=== PATIENT | male | born 1940 | race Caucasian/White ===

== ENCOUNTER 2018-10-25 14:10 | Inpatient (IN) ==
[2018-10-25] MEDS ORDERED: ALBUT/IPRATROP 3MG/0.5MG NEB 3 ML VIAL INH STA (14:48)
[2018-10-25] MEDS ORDERED: methylPREDNISolone 125 MG/2 ML VIAL IV STA (14:48)
[2018-10-25 15:16] LABS: Basophils # (auto) 0.01 K/uL (0-0.2); Basophils % (auto) 0.1 %; Eosinophils # (auto) 0.16 K/uL (0-0.5); Eosinophils % (auto) 1.2 %; Hematocrit (blood only) 42.9 % (42-52); Hemoglobin 13.8 g/dL (14.0-18.0); Immature Granulocytes # (auto) 0.04 K/uL (0.00-0.02); Immature Granulocytes % (auto) 0.3 %; Lymphocytes # (auto) 0.57 K/uL (1.2-3.4); Lymphocytes % (auto) 4.1 %; Mean Corpuscular Hgb Conc 32.2 g/dL (32-36); Mean Corpuscular Volume 90.7 fL (80-100); Mean Platelet Volume 10.2 fL (7.4-10.4); Monocytes # (auto) 0.97 K/uL (0.11-0.59); Neutrophils # (auto) 12.07 K/uL (1.4-6.5); Neutrophils % (auto) 87.3 %; Platelet Count 191 K/uL (130-400); RDW Coefficient of Variation 15.8 % (11.5-14.5); RDW Standard Deviation 52.5 fL (36.4-46.3); Red Blood Count 4.73 M/uL (4.7-6.1); White Blood Count 13.82 K/uL (4.8-10.8)
--- NOTE | 2018-10-25 15:27 | XRay Report ---
XR chest 1V portable CLINICAL HISTORY: 77 years-old Male presenting with Dyspnea. TECHNIQUE: Portable upright AP view of the chest was obtained. COMPARISON: Chest CT from 10/21/2018. FINDINGS: Atherosclerosis of the aortic arch. Cardiac silhouette top normal in size. Extensive reticular opacit ies with a mid to basilar predominance increased from prior. Background heterogeneous lung markings. No large pleural effusion or pneumothorax. Osseous structures normal. Upper abdomen normal. IMPRESSION: 1. Increased bilateral mid to basilar predominant infiltrates superimposed on emphysema. This is con cerning for multifocal pneumonia versus aspiration. Electronically signed by: Jose Henley M.D. 10/25/2018 3:26 PM
--- NOTE | 2018-10-25 16:16 | Ultrasound Report ---
US venous doppler LE BI CLINICAL HISTORY: Bilateral leg pain COMPARISON STUDY: No previous studies for comparison. FINDINGS: Real-time and color flow Doppler imaging were performed. Flow was seen within the femoral, popliteal and calf veins with no intraluminal thrombus demonstrated. The saphenous vein is patent. IMPRESSION: No evidence of lower extremity DVT. Electronically signed by: Brandon Fregoso M.D. 10/25/2018 4:14 PM
[2018-10-25 17:48] LABS: INR 1.1 (0.9-1.1); Partial Thromboplastin Ratio 1.2; Partial Thromboplastin Time 31.2 Seconds (21.0-31.0); Prothrombin Time 10.9 Seconds (9.0-12.0)
[2018-10-25 17:58] LABS: Albumin Level 3.2 gm/dl (3.4-5.0); BUN Creatinine Ratio 12.3 (10-20); Calcium 8.8 mg/dl (8.5-10.1); Creatinine Clr Calc Pharmacy 65.5 ml/min; Est GFR (African American) 87.4; Est GFR (Non-African American) 75.4; Potassium 4.3 mmol/L (3.5-5.1)
[2018-10-25 18:01] LABS: Albumin Globulin Ratio 0.7 (0.9-2); Bilirubin,Total 0.7 mg/dl (0.2-1); Globulin 4.6 gm/dl (2.5-4.0); Total Protein 7.8 gm/dl (6.4-8.2)
--- NOTE | 2018-10-25 19:01 | History & Physical Report ---
Date of Service October 25, 2018 Assessment & Plan (1) Shortness of breath: Patient with recent multilobar PNA and influenza requiring two week hospitalization in [place]. Progressive weakness and SOB over the last 2 weeks. Patient denies fevers, chills, malaise. He does have leukocytosis with WBC at 13.82 - uncertain what his WBC count was on discharge (records have been requested). Tachycardic at 102bpm. Uncertain if this is recurrence of PNA/ failure of treatment, deconditioning, aspiration, etc. Patient presently with no respiratory distress, adequate oxygenation on 2L NC. -Admit to medical floor with telemetry -Continuous pulse oximetry -Check BNP, procalcitonin -Check 2D echocardiogram - ?cardiomyopathy after recent influenza infection -Speech/Swallow evaluation for possible aspiration -Incentive spirometry q2h while awake -DuoNebs q 4 hours -Albuterol q 2 hours as needed -PT/OT evaluation (2) Multifocal pneumonia: History of the same, s/p hospitalization at [place]. Presently afebrile. Tachycardic, leukocytosis -Blood cultures pendinig -Check sputum culture -Obtain records from hospitalization -Check procalcitonin -Vancomycin and Zosyn (3) COPD (chronic obstructive pulmonary disease): No wheezing at present. Patient administered SoluMedrol in ER -DuoNebs and Albuterol PRN (4) CAD (coronary artery disease): Patient with CAD s/p stent placement x 2 in 2012 -Continue ASA, Plavix and Crestor -Echo ordered (5) GERD (gastroesophageal reflux disease): Chronic, stable -Continue Protonix (6) Hypothyroid: Chronic -Continue Synthroid History of Present Illness Chief Complaint: SOB Primary Care Provider: Roderick Mcghee Mr. Arias is a 77yo male with history of COPD, recurrent PNA (yearly over the past 3 years), CAD s/p GA with stent x 2 presenting with SOB. Patient was admitted to [facility] 09/29/18 - 10/08/18 with acute respiratory failure, pneumonia and influenza. He reports he was treated with antibiotics, Tamiflu and nebs. He does not recall which antibiotics were used. He was not in the MICU and not intubated. He was discharged with a steroid taper and home oxygen was initiated. He now wears 2-3 liters at home with rest and 6 liters at home with activity. He reports feeling fairly well for 3-4 days after returning home after which he became progressively weak and short of breath. Patient reports becoming dyspneic with minimal ambulation in his home, appx 20-30 feet. Prior to his PNA he was fairly independent. He denies fevers/chills/sweats/ malaise. Denies chest pain/palpitations. Denies abdominal pain/nausea/ vomiting. He did have some diarrhea which resolved yesterday. He has a dry cough. Patient was seen in followup on 10/13/18. At that time he was feeling better. A CT chest was ordered to followup on a possible "mass" noted on [facility] imaging ER Course: Solumedrol 125mg, DuoNeb Allergies Allergy/AdvReac Type Severity Reaction Status Date / Time cephalexin Allergy Unknown ITCHING Verified 10/25/18 15:26 Iodinated Contrast- Oral and Allergy Unknown Hypotension Verified 10/25/18 15:26 IV Dye Home Medications Home Medications Medication Instructions Recorded Confirmed Type albuterol sulfate 3 ml INHALATION Q6H PRN 10/25/18 10/25/18 History aspirin 81 mg PO DAILY 10/25/18 10/25/18 History clopidogrel 75 mg PO Q2D 10/25/18 10/25/18 History docusate sodium [Stool Softener] 100 mg PO BID PRN 10/25/18 10/25/18 History levothyroxine 50 mcg PO QAM 10/25/18 10/25/18 History pantoprazole 40 mg PO QAM 10/25/18 10/25/18 History rosuvastatin 20 mg PO DAILY 10/25/18 10/25/18 History trazodone 300 mg PO HS 10/25/18 10/25/18 History Past Med/Surg History Medical History CAD (coronary artery disease) COPD (chronic obstructive pulmonary disease) Emphysema Epistaxis GERD (gastroesophageal reflux disease) Hyperlipidemia Hypothyroid Insomnia Lung mass Currently being worked up by Pulmonary No significant family history No significant past surgical history Surgical History H/O heart artery stent S/P hemorrhoidectomy S/P hernia repair Family History Other Cancer Social History Feels Safe at Home: Yes Smoking Status: Former smoker Hx Alcohol Use: No Hx Substance Use: No Review of Systems All systems reviewed & are unremarkable except as noted in HPI & below Physical Exam 2 Vital Signs (Past 24 Hours): Last Vital Signs Temp 37.4 C 10/25/18 14:20 Pulse 104 H 10/25/18 18:30 Resp 20 10/25/18 18:30 BP 147/87 H 10/25/18 18:30 Pulse Ox 93 10/25/18 18:30 Physical Exam: General: patient resting comfortably, NAD, AA&O x 4, chronically ill in appearance Skin: warm, dry, intact, no rashes or lesions HEENT: NC/AT, PERRL, EOMI, anicteric sclera, conjunctiva without injection, external ear normal to inspection and nontender, nares patent, moist mucus membranes, poor dentition, no oropharyngeal lesions, neck supple, trachea midline, no LAD, no thyromegaly, no JVD Heart: +S1/S2, regular, tachycardic, no m/r/g Lungs: equal air entry bilaterally, + coarse breath sounds/crackles in right base and left mid-lung field, no wheezing Abd: +BS, soft, NT/ND, no masses/organomegaly/ascites Ext: warm, 2+ pulses in UE/LE bilaterally, slight digital clubbing, no edema Neuro: nonfocal, patient AA&O x 4, speech intact, no facial droop, moving all extremities on command with equal strength 5/5 Results & Data Laboratory Results Lab Results 10/25/18 10/25/18 10/25/18 Range/Units 15:00 15:00 15:00 WBC 13.82 H (4.8-10.8) K/uL RBC 4.73 (4.7-6.1) M/uL Hgb 13.8 L (14.0-18.0) g/dL Hct 42.9 (42-52) % MCV 90.7 (80-100) fL MCH 29.2 (25-34) pg MCHC 32.2 (32-36) g/dL RDW Std Deviation 52.5 H (36.4-46.3) fL RDW Coeff of Yoselin 15.8 H (11.5-14.5) % Plt Count 191 (130-400) K/uL MPV 10.2 (7.4-10.4) fL Immature Gran % (Auto) 0.3 % Neut % (Auto) 87.3 % Lymph % (Auto) 4.1 % [place] % (Auto) 7.0 % Eos % (Auto) 1.2 % Baso % (Auto) 0.1 % Immature Gran # (Auto) 0.04 H (0.00-0.02) K/uL Neut # (Auto) 12.07 H (1.4-6.5) K/uL Lymph # (Auto) 0.57 L (1.2-3.4) K/uL [place] # (Auto) 0.97 H (0.11-0.59) K/uL Eos # (Auto) 0.16 (0-0.5) K/uL Baso # (Auto) 0.01 (0-0.2) K/uL PT Cancelled INR Cancelled APTT Cancelled PTT Ratio Cancelled POC D-Dimer (0-450) ng/mlFEU Sodium Cancelled Potassium Cancelled Chloride Cancelled Carbon Dioxide Cancelled Anion Gap Cancelled BUN Cancelled Creatinine Cancelled Est Cr Clr Drug Dosing Cancelled Est GFR ( Amer) Cancelled Est GFR (Non-Af Amer) Cancelled BUN/Creatinine Ratio Cancelled Glucose Cancelled Calcium Cancelled Total Bilirubin Cancelled AST Cancelled ALT Cancelled Alkaline Phosphatase Cancelled POC Troponin I (0-0.045) ng/ml Total Protein Cancelled Albumin Cancelled Globulin Cancelled Albumin/Globulin Ratio Cancelled 10/25/18 10/25/18 10/25/18 Range/Units 15:08 16:40 16:40 WBC (4.8-10.8) K/uL RBC (4.7-6.1) M/uL Hgb (14.0-18.0) g/dL Hct (42-52) % MCV (80-100) fL MCH (25-34) pg MCHC (32-36) g/dL RDW Std Deviation (36.4-46.3) fL RDW Coeff of [place]oselin (11.5-14.5) % Plt Count (130-400) K/uL MPV (7.4-10.4) fL Immature Gran % (Auto) % Neut % (Auto) % Lymph % (Auto) % [place] % (Auto) % Eos % (Auto) % Baso % (Auto) % Immature Gran # (Auto) (0.00-0.02) K/uL Neut # (Auto) (1.4-6.5) K/uL Lymph # (Auto) (1.2-3.4) K/uL [place] # (Auto) (0.11-0.59) K/uL Eos # (Auto) (0-0.5) K/uL Baso # (Auto) (0-0.2) K/uL PT 10.9 INR 1.1 APTT 31.2 H PTT Ratio 1.2 POC D-Dimer > 450 H* (0-450) ng/mlFEU Sodium 138 Potassium 4.3 Chloride 103 Carbon Dioxide 30 Anion Gap 5.0 BUN 12 Creatinine 0.96 Est Cr Clr Drug Dosing 65.5 Est GFR ( Amer) 87.4 Est GFR (Non-Af Amer) 75.4 BUN/Creatinine Ratio 12.3 Glucose 102 H Calcium 8.8 Total Bilirubin 0.7 AST 15 ALT 29 Alkaline Phosphatase 74 POC Troponin I < 0.03 (0-0.045) ng/ml Total Protein 7.8 Albumin 3.2 L Globulin 4.6 H Albumin/Globulin Ratio 0.7 L Diagnostic Findings XR chest 1V portable CLINICAL HISTORY: 77 years-old Male presenting with Dyspnea. TECHNIQUE: Portable upright AP view of the chest was obtained. COMPARISON: Chest CT from 10/21/2018. FINDINGS: Atherosclerosis of the aortic arch. Cardiac silhouette top normal in size. Extensive reticular opacities with a mid to basilar predominance increased from prior. Background heterogeneous lung markings. No large pleural effusion or pneumothorax. Osseous structures normal. Upper abdomen normal. IMPRESSION: 1. Increased bilateral mid to basilar predominant infiltrates superimposed on emphysema. This is concerning for multifocal pneumonia versus aspiration. Electronically signed by: Jose Henley M.D. 10/25/2018 3:26 PM Dictated: 10/25/18 1525 Transcribed: 10/25/18 1525 US venous doppler LE BI CLINICAL HISTORY: Bilateral leg pain COMPARISON STUDY: No previous studies for comparison. FINDINGS: Real-time and color flow Doppler imaging were performed. Flow was seen within the femoral, popliteal and calf veins with no intraluminal thrombus demonstrated. The saphenous vein is patent. IMPRESSION: No evidence of lower extremity DVT. Electronically signed by: Brandon Fregoso M.D. 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 transplanted heart: [place] heart Associated angina: without angina Qualified Code(s): I25.10 - Atherosclerotic heart disease of [place] coronary artery without angina pectoris (3) GERD (gastroesophageal reflux disease) Esophagitis presence: esophagitis presence not specified Qualified Code(s): K21.9 - Gastro-esophageal reflux disease without esophagitis (4) Hypothyroid Hypothyroidism type: unspecified Qualified Code(s): E03.9 - Hypothyroidism, unspecified
[2018-10-25] MEDS ORDERED: VANCOMYCIN CONSULT ACTIVE PRN (21:03)
[2018-10-25] MEDS ORDERED: DOCUSATE SODIUM 100 MG CAP PO PRN (21:03)
[2018-10-25] MEDS ORDERED: PIPERACILL/TAZOBAC CONSULT ACTIVE PRN (21:03)
[2018-10-25] MEDS ORDERED: ALBUTEROL 0.083% NEBU SOLN 3 ML VIAL INH PRN (21:03)
[2018-10-25] MEDS ORDERED: SODIUM CHLORIDE 0.65% NA SOLN 45 ML (OCEAN) PRN (21:03)
[2018-10-25] MEDS ORDERED: ACETAMINOPHEN 325 MG TAB PO PRN (21:03)
[2018-10-25] MEDS ORDERED: VANCOMYCIN HCL 2,000 MG in SODIUM CHLORIDE 0.9% 500 ML IV ONE (21:15)
[2018-10-25] MEDS ORDERED: PIPERACILLIN/TAZOBACTAM 4.5 GM in DEXTROSE 5% 100 ML IV ONE (21:15)
--- NOTE | 2018-10-25 21:32 | Emergency Department Note ---
Entered by Heidy Austin acting as a scribe for Tommy Banks MD History of Present Illness General Chief complaint: Cardiac Assessment Stated complaint: HEART FLUTTERING,GENERALIZED PAIN Source: patient Limitations: no limitations History of Present Illness Provider complaint: cardiac assessment Onset (ago): hour(s) Location: chest Associated symptoms: + denies other symptoms (swelling in legs), + chest pain, + cough, + shortness of breath and + weakness; no fever/chills Treatments prior to arrival: other (nebulizer) The patient is a 77 year old male who presents to the Emergency Room for a cardiac assessment. The patient states that his home health nurse was at his house prior to arrival and insisted that the patient come to the ED for evaluation. The patient states that his heart was beating quickly and that his oxygen was dropping. The patient states that he is usually on 2L of oxygen at home and states that he is suppose to increase it to 6L when he is moving around , which he did not. He also states that he used a nebulizer prior to the nurses arrival. The patient states that he has weakness, shortness of breath, and cough. The patient denies any fevers or swelling of his legs. The patient also states that he has intermittent chest pain that has been going on for years. The patient states that he took his nebulizer approximately 15 minutes before the home health nurse arrived. The patient states that he was diagnosed with pneumonia 2 weeks prior to arrival. The patient states that he has an appointment with a lung specialist in 2 days. The patient states that he has a history of COPD and blood clots. Home Medications Home Medications Medication Instructions Recorded Confirmed Type albuterol sulfate 3 ml INHALATION Q6H PRN 10/25/18 10/25/18 History aspirin 81 mg PO DAILY 10/25/18 10/25/18 History clopidogrel 75 mg PO Q2D 10/25/18 10/25/18 History docusate sodium [Stool Softener] 100 mg PO BID PRN 10/25/18 10/25/18 History levothyroxine 50 mcg PO QAM 10/25/18 10/25/18 History pantoprazole 40 mg PO QAM 10/25/18 10/25/18 History rosuvastatin 20 mg PO DAILY 10/25/18 10/25/18 History trazodone 300 mg PO HS 10/25/18 10/25/18 History Allergies Allergy/AdvReac Type Severity Reaction Status Date / Time cephalexin Allergy Unknown ITCHING Verified 10/25/18 15:26 Iodinated Contrast- Oral and Allergy Unknown Hypotension Verified 10/25/18 15:26 IV Dye Past Med/Surg History Medical History CAD (coronary artery disease) COPD (chronic obstructive pulmonary disease) Emphysema Epistaxis GERD (gastroesophageal reflux disease) Hyperlipidemia Hypothyroid Insomnia Lung mass Currently being worked up by Pulmonary No significant family history No significant past surgical history Surgical History H/O heart artery stent S/P hemorrhoidectomy S/P hernia repair Family History Other Cancer Social History Current Living Situation: Alone Other Information That Helps Us Care for You: No Feels Safe at Home: Yes Smoking Status: Former smoker Tobacco Type: cigarettes Hx Alcohol Use: Yes Hx Substance Use: No Beliefs That Will Affect Care: None Preferred Language: [place] Citizen Communication Ability: Effective Corn Breeder Required: Yes Review of Systems See HPI for pertinent positives & negatives. and A total of 10 systems reviewed and were otherwise negative Physical Exam Vital Signs Vital Signs - 24 hr 10/25/18 14:20 10/25/18 14:35 10/25/18 15:27 Temperature 37.4 C Temperature Source Oral Sepsis Recent Fever Within 48 Hours No Sepsis New/Unexplained Change in Mental Status No Sepsis Action Taken by Nursing No Action Required Pulse Rate 107 H Pulse Rate [Apical] Pulse Rhythm [Apical] Respiratory Rate 20 Respiratory Effort / Characteristics Non-Labored Spontaneous Respiratory Depth Normal Respiratory Pattern Regular Blood Pressure 135/87 Blood Pressure [Left Arm] Blood Pressure Mean 103 Blood Pressure Mean [Left Arm] Pulse Oximetry 95 98 98 Oxygen Delivery Method Nasal Cannula Nasal Cannula Room Air Oxygen Flow Rate 3 2 10/25/18 16:30 10/25/18 18:30 10/25/18 19:58 Temperature Temperature Source Sepsis Recent Fever Within 48 Hours Sepsis New/Unexplained Change in Mental Status Sepsis Action Taken by Nursing Pulse Rate 107 H Pulse Rate [Apical] 102 H 104 H Pulse Rhythm [Apical] Respiratory Rate 20 20 24 Respiratory Effort / Characteristics Respiratory Depth Respiratory Pattern Blood Pressure 118/71 Blood Pressure [Left Arm] 128/64 147/87 H Blood Pressure Mean Blood Pressure Mean [Left Arm] 85 107 Pulse Oximetry 94 93 93 Oxygen Delivery Method Room Air Room Air Nasal Cannula Oxygen Flow Rate 3 10/25/18 21:04 Temperature 36.8 C Temperature Source Oral Sepsis Recent Fever Within 48 Hours Sepsis New/Unexplained Change in Mental Status Sepsis Action Taken by Nursing Pulse Rate Pulse Rate [Apical] 109 H Pulse Rhythm [Apical] Regular Respiratory Rate 22 Respiratory Effort / Characteristics SOB on Exertion Respiratory Depth Normal Respiratory Pattern Tachypnea Blood Pressure Blood Pressure [Left Arm] 127/84 Blood Pressure Mean Blood Pressure Mean [Left Arm] 98 Pulse Oximetry 92 Oxygen Delivery Method Nasal Cannula Oxygen Flow Rate 3 Constitutional: Vital signs reviewed. Eyes: Pupils are equal round reactive to light. Conjunctiva are noninjected. ENT: Pharynx is clear without erythema or exudate. Mucous membranes are moist. Neck supple without meningeal signs. Respiratory: Clear to auscultation bilaterally. Breath sounds are equal bilaterally. Cardiovascular: Tachycardic. No rubs or gallops. GI: Soft, nondistended and nontender. Bowel sounds are present. Musculoskeletal: No peripheral edema. Right calf tenderness. Integumentary: No cyanosis. Neurological: The patient is awake and alert. No focal deficits. Psychiatric: Normal affect. Course 1437: Past medical records reviewed. The patient was evaluated in room A4B, and a complete history and physical examination were performed. 1631: I checked on the patient and discussed his test results with him. The patient stated that he would like to go home but I advised him that would not be a good idea because he was treated for pneumonia but still has it. 1719: I checked on the patient and he states that his chest pain is better after the Nitroglycerin. [facility]: I discussed the patient's case with Dr. Chris Gregory who will evaluate the patient for further hospitalization. Dr. Perez stated that she preferred to wait for the medical records from [place] before giving the patient any antibiotics. Consultations Consultation #1: Dr. Chris Gregory Time: 17:31 Administered Medications Discontinued Medications Albuterol (Duoneb) 3 ml INH NOW STA Stop: 10/25/18 14:49 Last Admin: 10/25/18 15:26 Dose: 3 ml Methylprednisolone (Solumedrol) 125 mg IV NOW STA Stop: 10/25/18 14:49 Last Admin: 10/25/18 15: Dose: 125 mg Medical Decision Making Differential Diagnosis Differential Diagnosis: COPD exacerbation, unstable angina, VT, PE. Medical Records Attestation: I reviewed the patient's medical records. Home Medications Current Medication List: was personally reviewed by me Laboratory Data Attestation: I reviewed the patient's lab results. Result diagrams: 10/25/18 15:00 10/25/18 16:40 Lab Results 10/25/18 10/25/18 10/25/18 Range/Units 15:00 15:00 15:00 WBC 13.82 H (4.8-10.8) K/uL RBC 4.73 (4.7-6.1) M/uL Hgb 13.8 L (14.0-18.0) g/dL Hct 42.9 (42-52) % MCV 90.7 (80-100) fL MCH 29.2 (25-34) pg MCHC 32.2 (32-36) g/dL RDW Std Deviation 52.5 H (36.4-46.3) fL RDW Coeff of Yoselin 15.8 H (11.5-14.5) % Plt Count 191 (130-400) K/uL MPV 10.2 (7.4-10.4) fL Immature Gran % (Auto) 0.3 % Neut % (Auto) 87.3 % Lymph % (Auto) 4.1 % [place] % (Auto) 7.0 % Eos % (Auto) 1.2 % Baso % (Auto) 0.1 % Immature Gran # (Auto) 0.04 H (0.00-0.02) K/uL Neut # (Auto) 12.07 H (1.4-6.5) K/uL Lymph # (Auto) 0.57 L (1.2-3.4) K/uL [place] # (Auto) 0.97 H (0.11-0.59) K/uL Eos # (Auto) 0.16 (0-0.5) K/uL Baso # (Auto) 0.01 (0-0.2) K/uL PT Cancelled INR Cancelled APTT Cancelled PTT Ratio Cancelled POC D-Dimer (0-450) ng/mlFEU Sodium Cancelled Potassium Cancelled Chloride Cancelled Carbon Dioxide Cancelled Anion Gap Cancelled BUN Cancelled Creatinine Cancelled Est Cr Clr Drug Dosing Cancelled Est GFR ( Amer) Cancelled Est GFR (Non-Af Amer) Cancelled BUN/Creatinine Ratio Cancelled Glucose Cancelled Calcium Cancelled Total Bilirubin Cancelled AST Cancelled ALT Cancelled Alkaline Phosphatase Cancelled POC Troponin I (0-0.045) ng/ml Total Protein Cancelled Albumin Cancelled Globulin Cancelled Albumin/Globulin Ratio Cancelled 10/25/18 10/25/18 10/25/18 Range/Units 15:08 16:40 16:40 WBC (4.8-10.8) K/uL RBC (4.7-6.1) M/uL Hgb (14.0-18.0) g/dL Hct (42-52) % MCV (80-100) fL MCH (25-34) pg MCHC (32-36) g/dL RDW Std Deviation (36.4-46.3) fL RDW Coeff of Yoselin (11.5-14.5) % Plt Count (130-400) K/uL MPV (7.4-10.4) fL Immature Gran % (Auto) % Neut % (Auto) % Lymph % (Auto) % [place] % (Auto) % Eos % (Auto) % Baso % (Auto) % Immature Gran # (Auto) (0.00-0.02) K/uL Neut # (Auto) (1.4-6.5) K/uL Lymph # (Auto) (1.2-3.4) K/uL [place] # (Auto) (0.11-0.59) K/uL Eos # (Auto) (0-0.5) K/uL Baso # (Auto) (0-0.2) K/uL PT 10.9 INR 1.1 APTT 31.2 H PTT Ratio 1.2 POC D-Dimer > 450 H* (0-450) ng/mlFEU Sodium 138 Potassium 4.3 Chloride 103 Carbon Dioxide 30 Anion Gap 5.0 BUN 12 Creatinine 0.96 Est Cr Clr Drug Dosing 65.5 Est GFR ( Amer) 87.4 Est GFR (Non-Af Amer) 75.4 BUN/Creatinine Ratio 12.3 Glucose 102 H Calcium 8.8 Total Bilirubin 0.7 AST 15 ALT 29 Alkaline Phosphatase 74 POC Troponin I < 0.03 (0-0.045) ng/ml Total Protein 7.8 Albumin 3.2 L Globulin 4.6 H Albumin/Globulin Ratio 0.7 L Imaging Data Radiologist's Impression: Radiology results as stated below per my review and the radiologist's interpretation: US venous doppler LE BI CLINICAL HISTORY: Bilateral leg pain COMPARISON STUDY: No previous studies for comparison. FINDINGS: Real-time and color flow Doppler imaging were performed. Flow was seen within the femoral, popliteal and calf veins with no intraluminal thrombus demonstrated. The saphenous vein is patent. IMPRESSION: No evidence of lower extremity DVT. Electronically signed by: Brandon Fregoso M.D. 10/25/2018 4:14 PM XR chest 1V portable CLINICAL HISTORY: 77 years-old Male presenting with Dyspnea. TECHNIQUE: Portable upright AP view of the chest was obtained. COMPARISON: Chest CT from 10/21/2018. FINDINGS: Atherosclerosis of the aortic arch. Cardiac silhouette top normal in size. Extensive reticular opacities with a mid to basilar predominance increased from prior. Background heterogeneous lung markings. No large pleural effusion or pneumothorax. Osseous structures normal. Upper abdomen normal. IMPRESSION: 1. Increased bilateral mid to basilar predominant infiltrates superimposed on emphysema. This is concerning for multifocal pneumonia versus aspiration. Electronically signed by: Jose Henley M.D. 10/25/2018 3:26 PM ECG Data Attestation: I personally reviewed and interpreted this ECG as follows: Indication: chest pain Rate (beats per minute): 110 Rhythm: sinus tachycardia Findings: + other (limited interpretation due to baseline artifact); no PVC and no ST elevation Blood Pressure Blood Pressure Findings: Normal blood pressure MDM Narrative The patient is hypertensive. I did perform a limited focused review of portions of the patient's old chart on the electronic medical record. The patient had a CT chest wo contrast on October 21, which showed a 6x5x3 mass in the left upper leg. I did evaluate the patient as noted above. Patient is presenting here with tachycardia, shortness of breath and chest pain. He does state that his chest pain has been going on for a very long time and it is not new for him. He also has COPD. He also states that he may have been tachycardic because he just use a nebulizer prior to his nurse coming in. He also states that he did not increase his oxygen while getting up as he is supposed to do. He was just recently hospitalized so I was concerned about the possibility of PE given his recent diagnosis of possible neoplasm on CT scan. IV access was established. The patient was placed on a continuous refrigerator repairman. I did order and personally review the patient's 12-lead EKG and chest x-ray as described above. His twelve-lead EKG does not show any acute ischemia. His chest x-ray shows multifocal pneumonia. I did order and review the patient's blood work as noted in the electronic medical record. His white blood cell count is elevated. D- dimer is also elevated but this may be secondary to the amount of pneumonia. He cannot have a CT angiogram scan of his chest because of his IV dye allergy. He states that his blood pressure dropped precipitously last time he received it. I did order a Doppler ultrasound of the legs. I did review the images myself as well as the radiology report as described above. There is no evidence of DVT. I did attempt to get records from [facility] given that he was just recently hospitalized for pneumonia and influenza. They have yet to send us records. I did recommend hospitalization given his x-ray findings and symptoms. The inpatient team will initiate antibiotic treatment. I did discuss case with the hospitalist and case worker. Impression & Plan Multifocal pneumonia, Chest pain, precordial, Failure of outpatient treatment Discharge Plan Visit Data Chief Complaint: Cardiac Assessment Stated Complaint: HEART FLUTTERING,GENERALIZED PAIN ED Provider: Tommy Banks Discharge Problem: Multifocal pneumonia, Chest pain, precordial, Failure of outpatient treatment Patient Disposition: Admitted As Inpatient Discharge Instructions Interventions: ED Discharge Assessment Last Done: 10/25/18 19:58 The scribe's documentation has been prepared under my direction and personally reviewed by me in its entirety. I confirm that the note above accurately reflects all work, treatment, procedures, and medical decision making performed by me.
[2018-10-25 21:48] LABS: Magnesium 1.8 mg/dl (1.8-2.4)
[2018-10-25] MEDS: TRAZODONE HCL 100 MG TAB PO SCH (21:58)
[2018-10-25] MEDS: ENOXAPARIN INJ 40 MG/0.4 ML SYR SQ SCH (22:00)
[2018-10-26] MEDS: ALBUT/IPRATROP 3MG/0.5MG NEB 3 ML VIAL NEB SCH ×7 (00:40→23:12)
[2018-10-26] MEDS: PIPERACILLIN/TAZOBACTAM 3.375 GM in DEXTROSE 5% 100 ML IV SCH ×3 (03:15→20:15)
[2018-10-26] MEDS: LEVOTHYROXINE SODIUM 50 MCG TABLET PO SCH (06:18)
[2018-10-26 06:25] LABS: Hematocrit (blood only) 39.9 % (42-52); Hemoglobin 12.8 g/dL (14.0-18.0); Immature Granulocytes # (auto) 0.03 K/uL (0.00-0.02); Immature Granulocytes % (auto) 0.3 %; Lymphocytes # (auto) 0.47 K/uL (1.2-3.4); Lymphocytes % (auto) 5.2 %; Mean Corpuscular Hgb Conc 32.1 g/dL (32-36); Mean Corpuscular Volume 90.9 fL (80-100); Monocytes # (auto) 0.31 K/uL (0.11-0.59); Monocytes % (auto) 3.4 %; Neutrophils # (auto) 8.19 K/uL (1.4-6.5); Neutrophils % (auto) 91.1 %; Platelet Count 185 K/uL (130-400); RDW Coefficient of Variation 15.8 % (11.5-14.5); RDW Standard Deviation 52.5 fL (36.4-46.3); Red Blood Count 4.39 M/uL (4.7-6.1)
[2018-10-26 06:54] LABS: BUN Creatinine Ratio 16.1 (10-20); Calcium 8.5 mg/dl (8.5-10.1); Creatinine Clr Calc Pharmacy 49.9 ml/min; Est GFR (African American) 62.9; Est GFR (Non-African American) 54.3; Potassium 4.4 mmol/L (3.5-5.1)
[2018-10-26] MEDS: ASPIRIN 81 MG ECTAB PO SCH (07:46)
[2018-10-26] MEDS: ROSUVASTATIN CALCIUM 20 MG TAB PO SCH (07:46)
[2018-10-26] MEDS: PANTOprazole 40 MG TAB PO SCH (07:46)
[2018-10-26] MEDS: VANCOMYCIN HCL 1,250 MG in SODIUM CHLORIDE 0.9% 250 ML IV SCH (12:15)
--- NOTE | 2018-10-26 17:09 | Family Medicine Progress Note ---
Date of Service October 26, 2018 Assessment & Plan (1) Multifocal pneumonia: Multifocal pneumonia, following recent hospitalization for influenza �Chest x-ray showed bilateral mid basilar infiltrates with superimposed emphysema �Treating as hospital-acquired with vancomycin/Zosyn �Chest CT on 10/21/2018 showed 6 x 5 x 3 cm masslike opacity in the left upper lobe �Patient was to follow-up with [facility] on 10/27/2018 �We will consult pulmonology, appreciate recommendations regarding follow-up imaging for mass and recommendations regarding apparent recurrent pneumonia COPD �Continue duo nebs, ICS �Continue to follow if patient exhibits signs wheezing or respiratory distress, will consider adding on IV steroids and treat as COPD exacerbation. CAD �Status post stent placement x2 in 2011 �Continue aspirin, Plavix, Crestor GERD �Continue Protonix Hypothyroidism �Continue Synthroid DVT prophylaxis �Lovenox 40 mg every 24 (2) Shortness of breath: (3) COPD (chronic obstructive pulmonary disease): (4) Hypothyroid: (5) GERD (gastroesophageal reflux disease): (6) CAD (coronary artery disease): Supervising Physician Co-Signing Physician Notes I saw the patient concurrent with the resident physician and confirmed milan portions of the history and physical exam. I agree with the impression and plan as noted in the resident documentation. Also discussed the case with pulmonary medicine prior to and after his consultation. Subjective 77-year-old male with past medical history of COPD, CAD, GERD, hypothyroidism presents with weakness and shortness of breath of the past 2 weeks. He was recently hospitalized at [facility] between 09/29/2018 to 10/08/2018 for pneumonia in the setting of influenza.He describes a period of improvement upon coming home, but started to develop developed shortness of breath. He also describes associated URI symptoms including runny nose, sinus congestion, ear pain. He states that his oxygen requirement has been increased. He is on 2 L at baseline. Review of systems Patient currently denies fevers, chills, chest pain, respiratory distress, abdominal pain, nausea/vomiting/diarrhea Physical Exam Vital Signs (Past 24 Hours): Last Vital Signs Temp 36.4 C L 10/26/18 15:14 Pulse 96 H 10/26/18 15:14 Resp 22 10/26/18 15:14 BP 114/73 10/26/18 15:14 Pulse Ox 93 10/26/18 15:14 Constitutional: WD/WN, vitals as above Eyes: PERRL, conjunctivae normal, anicteric sclerae ENMT: external ear and nose normal, oropharynx normal Red boggy nasal mucosa Neck: trachea midline, no thyromegaly Respiratory: no respiratory distress, no labored breathing and no nasal flaring Auscultation: lungs clear to auscultation bilaterally Decreased lung sounds in bilateral bases Cardiovascular: RRR, no murmur, no edema Gastrointestinal (Abdomen): normal bowel sounds, soft, nontender, no hepatosplenomegaly Musculoskeletal: no cyanosis or clubbing, extremities motor strength 5/5 Skin: no rashes, warm and dry Results & Data Laboratory Results Laboratory Last Values WBC 9.00 K/uL (4.8-10.8) 10/26/18 06:11 RBC 4.39 M/uL (4.7-6.1) L 10/26/18 06:11 Hgb 12.8 g/dL (14.0-18.0) L 10/26/18 06:11 Hct 39.9 % (42-52) L 10/26/18 06:11 MCV 90.9 fL (80-100) 10/26/18 06:11 MCH 29.2 pg (25-34) 10/26/18 06:11 MCHC 32.1 g/dL (32-36) 10/26/18 06:11 RDW Std Deviation 52.5 fL (36.4-46.3) H 10/26/18 06:11 RDW Coeff of Yoselin 15.8 % (11.5-14.5) H 10/26/18 06:11 Plt Count 185 K/uL (130-400) 10/26/18 06:11 MPV 10.0 fL (7.4-10.4) 10/26/18 06:11 Immature Gran % (Auto) 0.3 % 10/26/18 06:11 Neut % (Auto) 91.1 % 10/26/18 06:11 Lymph % (Auto) 5.2 % 10/26/18 06:11 [place] % (Auto) 3.4 % 10/26/18 06:11 Eos % (Auto) 0.0 % 10/26/18 06:11 Baso % (Auto) 0.0 % 10/26/18 06:11 Immature Gran # (Auto) 0.03 K/uL (0.00-0.02) H 10/26/18 06:11 Neut # (Auto) 8.19 K/uL (1.4-6.5) H 10/26/18 06:11 Lymph # (Auto) 0.47 K/uL (1.2-3.4) L 10/26/18 06:11 [place] # (Auto) 0.31 K/uL (0.11-0.59) 10/26/18 06:11 Eos # (Auto) 0.00 K/uL (0-0.5) 10/26/18 06:11 Baso # (Auto) 0.00 K/uL (0-0.2) 10/26/18 06:11 PT 10.9 Seconds (9.0-12.0) 10/25/18 16:40 INR 1.1 (0.9-1.1) 10/25/18 16:40 APTT 31.2 Seconds (21.0-31.0) H 10/25/18 16:40 PTT Ratio 1.2 10/25/18 16:40 POC D-Dimer > 450 ng/mlFEU (0-450) H* 10/25/18 15:08 Sodium 139 mmol/L (136-145) 10/26/18 06:11 Potassium 4.4 mmol/L (3.5-5.1) 10/26/18 06:11 Chloride 105 mmol/L (98-107) 10/26/18 06:11 Carbon Dioxide 28 mmol/L (21-32) 10/26/18 06:11 Anion Gap 6.0 (3-11) 10/26/18 06:11 BUN 20 mg/dl (7-18) H D 10/26/18 06:11 Creatinine 1.26 mg/dl (0.6-1.4) D 10/26/18 06:11 Est Cr Clr Drug Dosing 49.9 ml/min 10/26/18 06:11 Est GFR ( Amer) 62.9 10/26/18 06:11 Est GFR (Non-Af Amer) 54.3 10/26/18 06:11 BUN/Creatinine Ratio 16.1 (10-20) 10/26/18 06:11 Glucose 139 mg/dl (70-99) H 10/26/18 06:11 Calcium 8.5 mg/dl (8.5-10.1) 10/26/18 06:11 Phosphorus 3.0 mg/dl (2.5-4.9) 10/25/18 21:17 Magnesium 1.8 mg/dl (1.8-2.4) 10/25/18 21:17 Total Bilirubin 0.7 mg/dl (0.2-1) 10/25/18 16:40 AST 15 U/L (15-37) 10/25/18 16:40 ALT 29 U/L (12-78) 10/25/18 16:40 Alkaline Phosphatase 74 U/L (45-117) 10/25/18 16:40 POC Troponin I < 0.03 ng/ml (0-0.045) 10/25/18 15:08 NT-Pro-B Natriuret Pep 90 pg/ml (0-1800) 10/25/18 21:17 Total Protein 7.8 gm/dl (6.4-8.2) 10/25/18 16:40 Albumin 3.2 gm/dl (3.4-5.0) L 10/25/18 16:40 Globulin 4.6 gm/dl (2.5-4.0) H 10/25/18 16:40 Albumin/Globulin Ratio 0.7 (0.9-2) L 10/25/18 16:40 Procalcitonin < 0.05 ng/ml (0-0.5) 10/25/18 15:00 Nasal Screen MRSA (PCR) Negative (Negative) 10/26/18 07:50 Influenza Type A Ag Neg for Influ A (Neg) 10/26/18 15:00 Influenza Type B Ag Neg for Influ B (Neg) 10/26/18 15:00 Resident Activity Tracking Resident Involvement: Resident Care Provided Care Provided: Adult Hospital Medicine (1) CAD (coronary artery disease) Associated angina: without angina Coronary Disease-Associated Artery/Lesion type: [place] artery [place] vs. transplanted heart: [place] heart Qualified Code(s): I25.10 - Atherosclerotic heart disease of [place] coronary artery without angina pectoris (2) Hypothyroid Hypothyroidism type: unspecified Qualified Code(s): E03.9 - Hypothyroidism, unspecified (3) COPD (chronic obstructive pulmonary disease) COPD type: emphysema Emphysema type: unspecified Qualified Code(s): J43.9 - Emphysema, unspecified (4) GERD (gastroesophageal reflux disease) Esophagitis presence: esophagitis presence not specified Qualified Code(s): K21.9 - Gastro-esophageal reflux disease without esophagitis
[2018-10-26] MEDS: TRAZODONE HCL 100 MG TAB PO SCH (20:13)
[2018-10-26] MEDS: ENOXAPARIN INJ 40 MG/0.4 ML SYR SQ SCH (20:13)
--- NOTE | 2018-10-26 21:26 | Consultation Report ---
DATE OF CONSULTATION: 10/26/2018 TIME: 4:45 p.m. REASON FOR CONSULTATION: Pulmonary consultation is requested regarding an abnormal density in the left upper lung field. HISTORY OF PRESENT ILLNESS: The patient is a 77-year-old male who has a longstanding history of emphysema and COPD. He recently was hospitalized at [facility]. He states he was there for about 2 weeks. He could not give me definite dates. He went there because he was coughing blood. He states the blood was mixed with mucus. However, he uses fairly large quantities of snuff and I think it may be difficult for him to tell exactly what he coughs up. He states throughout his lifetime in the last several years intermittently he has coughed up some blood. He also was on Plavix on a regular basis which may contribute. He states that the mucus part was white. He was in the hospital for about 2 weeks. He had 2 CAT scans, there that showed abnormal densities in the left upper lung field. We do not have access to those x-rays at present. He also had a VQ scan that was reported as low probability for pulmonary emboli. The patient apparently was treated with antibiotics, bronchodilators and steroids. He states he now feels better than he has in about a month. He is not quite as tight in the chest. He was scheduled to have an outpatient pulmonary evaluation tomorrow. Yesterday, he had a visiting nurse. She insisted that he come to the hospital. She apparently told him his heart was beating quickly and his oxygen levels were dropping. The patient has been on 2 liters of oxygen continuously and he increases it to 6 liters with ambulation or exertion. He states he had also had some chest pain intermittently. Again, the chest pains come and go. He describes a certain pain which he feels is related to reflux. It is sometimes worse depending upon what he eats. Otherwise, he has these fleeting types of chest pains. He does carry a history of coronary artery disease and he has had cardiac stents done in the past. He came to the Emergency Room yesterday and was subsequently admitted primarily for a cardiac evaluation. He states that he is short of breath going up any hills such as his driveway. He is short of breath going up steps. He states that he is now staying on one floor in his house, so he does not have to do the steps. He did not have any chills, fevers or sweats, he states when he was sick. At home, he takes albuterol by nebulizer and that the only medicine he takes for breathing. He relates that in the past he had been on both Advair and Spiriva and he thought he did well with those. However, apparently his insurance would not cover the medicines at that time. He now feels he has insurance that will cover those medicines if need be. He denies any vomiting. He does have a history of severe nosebleeds. He did not describe having a nosebleed when he was hospitalized, however. The patient had a history of smoking from age 15 until age 49 at 1 pack per day or more. He quit smoking then the cigarettes and he has been using snuff on a regular basis. He estimates one can last 2 days. Alcohol use is described as 4-6 beers approximately once per week. PAST SURGICAL HISTORY: 1. Cardiac stent x2. 2. Hemorrhoidectomy. 3. Hernia repair. 4. Colonoscopy done x2 last summer which he states was for rectal bleeding and may have been diverticulitis. PAST MEDICAL HISTORY: 1. Coronary artery disease. 2. Emphysema. 3. Epistaxis. 4. Reflux. 5. Hyperlipidemia. 6. Hypothyroidism. 7. Insomnia. FAMILY HISTORY: Mother age 99, heart disease and diabetes. Father age 79 black lung and he had been a smoker. ALLERGIES: KEFLEX AND IV DYE. REVIEW OF SYSTEMS: Energy level is only fair. Appetite has improved. He states he has actually gained weight recently. Denies any bowel problems at present. Denies urinary problems. Review of systems is otherwise negative except as noted in the history of present illness. MEDICATIONS: Current medications at home: 1. Albuterol by nebulizer. 2. Baby aspirin. 3. Clopidogrel 75 mg every other day. 4. Docusate. 5. Levothyroxine 50 mcg daily. 6. Pantoprazole 40 mg daily. 7. Rosuvastatin 20 mg daily. 8. Trazodone 300 mg at bedtime. PHYSICAL EXAMINATION: GENERAL: The patient is a 77-year-old male who was cooperative, alert and oriented. He was in no distress. Weight is 78.9 kilograms for a BMI of 25. VITAL SIGNS: Temperature is 36.4. He had a temperature of 37.4 at a peak when he first came in, but this would still be within the limits of normal. HEENT: Pupils were reactive. Nares were mildly congested. Mouth exam shows that he is constantly using snuff. He has teeth in poor repair. It was difficult to assess the pharynx because of the snuff throughout. NECK: Palpation of the neck reveals no lymph nodes. CARDIAC: Rate was 96 per minute. Rhythm was regular. Blood pressure 114/73. CHEST: Normal development. The breath sounds were somewhat diminished diffusely. There was prolongation to the expiratory phase of respiration. He did cough some with deep breathing. Saturation was 93% on 3 liters. ABDOMEN: Soft. It was mildly obese. Bowel sounds were present. There was no tenderness to palpation or masses. EXTREMITIES: Showed no cyanosis, clubbing or edema. The patient states that it hurts to touch his ankles. The reason for that was not clear. Chest x-ray done yesterday suggested interstitial infiltrates mainly in the mid and lower lung field with emphysema noted in the upper lung field. Venous Doppler done yesterday showed no evidence of DVT. A CAT scan of the chest done yesterday showed cardiomegaly with advanced emphysema. In the left upper lobe, there was a mass-like density measuring 6 x 5 x 3. This would be concerning for a neoplasm, but could also be inflammatory, particularly in light of the recent history. He has had 2 prior CAT scans done elsewhere that we do not have access to. There are multiple other lung nodules in the left lung. A 12 mm would be the largest. There was no mediastinal adenopathy. There was a compression deformity at T12. A large hiatal hernia was noted. Cysts on the kidneys were noted. A cyst on the right measured at least 13 cm. LABORATORY DATA: White count is 9, hemoglobin 12.8, platelets are 185,000. Yesterday's white count was 13.82. Differential showed 91.1% neutrophils. Coags were unremarkable. Electrolytes show sodium 139, potassium 4.4, chloride 105, bicarb 28. BUN 20, creatinine 1.26. Glucose was 139. Albumin 3.2, globulin 4.6. Troponin was negative. ProBNP was negative. Flu test was negative. EKG showed sinus tachycardia with a rate of 110. Low voltage was present. Could not exclude prior inferior MD. Echocardiogram done today showed ejection fraction 55-60%. Borderline LVH. Right ventricle was normal in size and function. Left atrium was moderately dilated. IMPRESSION: 1. Left upper lobe mass-like density -- questionable neoplasm versus secondary to pneumonia. 2. Recent hemoptysis -- resolved. 3. Severe emphysema. 4. Nicotine addiction. COMMENTS AND RECOMMENDATIONS: The patient has very severe chronic lung disease. I think it is reasonable to wait approximately 2 months and repeat a CAT scan. We can make those arrangements after he is discharged. I could also make the arrangements to follow up with the patient. If there is no change in the density he would then need a bronchoscopy. Obviously, if the patient would present with recurrent hemoptysis, we would likely proceed with a bronchoscopy at that time. At the time of discharge, I believe the patient should be discharged with prescriptions for Advair 500/50 one puff b.i.d. and Spiriva Respimat 2 puffs daily. I have suggested to the patient that I really did not want him to use the snuff in the hospital because we cannot tell what his sputum looks like. He is very concerned about that. He states he gets withdrawal symptoms in just a few hours. That is really too early to have withdrawal, but nonetheless I would suggest a nicotine patch 21 mg daily to be utilized while he is hospitalized at least with the hope that he will withhold his snuff. Perhaps then we can better evaluate his sputum. He is on Zosyn and vancomycin. I am doubtful this represents an acute infection at this time, but would perhaps give him 2 days of the IV dosing and then decide where we are going with that. Please try in again to obtain the records from [facility]. We also need to have their x-rays installed into our system. I believe that would be through [facility] and that is likely feasible to be done with the phone call. I will ask my office to try and work on that tomorrow. Thank you for asking me to assist in his care.
[2018-10-27] MEDS: ALBUT/IPRATROP 3MG/0.5MG NEB 3 ML VIAL NEB SCH ×6 (03:08→23:02)
[2018-10-27] MEDS: PIPERACILLIN/TAZOBACTAM 3.375 GM in DEXTROSE 5% 100 ML IV SCH ×2 (04:35→12:10)
[2018-10-27] MEDS: VANCOMYCIN HCL 1,250 MG in SODIUM CHLORIDE 0.9% 250 ML IV SCH (04:35)
[2018-10-27] MEDS: LEVOTHYROXINE SODIUM 50 MCG TABLET PO SCH (06:11)
[2018-10-27 07:39] LABS: Basophils # (auto) 0.01 K/uL (0-0.2); Basophils % (auto) 0.1 %; Eosinophils # (auto) 0.08 K/uL (0-0.5); Eosinophils % (auto) 1.1 %; Hematocrit (blood only) 36.7 % (42-52); Hemoglobin 11.5 g/dL (14.0-18.0); Immature Granulocytes # (auto) 0.01 K/uL (0.00-0.02); Immature Granulocytes % (auto) 0.1 %; Lymphocytes % (auto) 17.2 %; Mean Corpuscular Hgb Conc 31.3 g/dL (32-36); Mean Corpuscular Volume 91.1 fL (80-100); Mean Platelet Volume 10.1 fL (7.4-10.4); Monocytes % (auto) 9.3 %; Neutrophils # (auto) 5.44 K/uL (1.4-6.5); Neutrophils % (auto) 72.2 %; Platelet Count 181 K/uL (130-400); RDW Coefficient of Variation 16.3 % (11.5-14.5); RDW Standard Deviation 54.1 fL (36.4-46.3); Red Blood Count 4.03 M/uL (4.7-6.1); White Blood Count 7.54 K/uL (4.8-10.8)
[2018-10-27 08:07] LABS: BUN Creatinine Ratio 15.6 (10-20); Creatinine Clr Calc Pharmacy 46.2 ml/min; Est GFR (African American) 57.4; Est GFR (Non-African American) 49.5; Potassium 3.9 mmol/L (3.5-5.1)
[2018-10-27] MEDS: ASPIRIN 81 MG ECTAB PO SCH (08:21)
[2018-10-27] MEDS: ROSUVASTATIN CALCIUM 20 MG TAB PO SCH (08:21)
[2018-10-27] MEDS: PANTOprazole 40 MG TAB PO SCH (08:21)
[2018-10-27] MEDS: NICOTINE 21 MG/24 HR TDSY TD SCH (08:24)
[2018-10-27] MEDS ORDERED: CLOPIDOGREL BISULFATE 75 MG TAB PO SCH (09:00)
[2018-10-27] MEDS: LORATADINE 10 MG TAB PO SCH (11:51)
--- NOTE | 2018-10-27 15:45 | Progress Note ---
DATE: 10/27/2018 PULMONARY PROGRESS NOTE TIME: 3:20 p.m. SUBJECTIVE: Still coughing some. Unfortunately, he has not stopped using the snuff that he uses. He also refused the nicotine patch that was ordered for him. He did attempt to send down another sputum sample by clearing his mouth out first, but I am questioning whether this would be reliable at all. He is still coughing at times. He is not offering any specific new complaints. OBJECTIVE: GENERAL: The patient was comfortable at rest. VITAL SIGNS: Temperature is 36.5. There have been no fevers. Heart rate 98 per minute. Rhythm regular. Blood pressure 132/73. MOUTH: Again shows teeth to be in very poor repair. He is still using the snuff. LUNGS: Lung nicholas revealed decreased breath sounds with scattered rhonchi bilaterally, posteriorly. Saturation is 93% on nasal cannula, not specified how much. EXTREMITIES: Showed no cyanosis or clubbing. LABORATORY DATA: White count of 7.54. Hemoglobin 11.5 and yesterday was 12.8. Platelets 181,000. Electrolytes were normal. BUN 21 and creatinine 1.36. The creatinine has been rising slightly daily. IMPRESSION: 1. Left upper lobe mass like density - questionable neoplasm versus pneumonia with slow resolution. 2. Recent hemoptysis - resolved. 3. Severe emphysema. 4. Nicotine addiction. COMMENTS AND RECOMMENDATIONS: The patient seems reasonably stable. I would think he may soon be able to be discharged. He has been on Zosyn since admission. That could be changed to Augmentin orally upon discharge. I have made some recommendations on my original consulted out sending him home with maintenance inhalers in addition to the nebulizer. Please refer to that. After discharge, we will arrange for followup and a CAT scan to be in about 2 months. DEONTE
--- NOTE | 2018-10-27 16:50 | Family Medicine Progress Note ---
Date of Service October 27, 2018 Assessment & Plan (1) Multifocal pneumonia: 1 puff twice dailyMultifocal pneumonia, following recent hospitalization for influenza �Chest x-ray showed bilateral mid basilar infiltrates with superimposed emphysema �Treated with broad-spectrum antibiotics for 48 hours, transitioning to Augmentin for strep pneumo and anaerobic coverage �Chest CT on 10/21/2018 showed 6 x 5 x 3 cm masslike opacity in the left upper lobe �Pulmonology following with the following recommendations��Advair 500/50 twice daily, Spiriva Respimat 2 puffs daily, 2-month follow-up CT, follow-up outpatient appointments COPD �Continue duo nebs, ICS CAD �Status post stent placement x2 in 2011 �Continue aspirin, Plavix, Crestor GERD �Continue Protonix Hypothyroidism �Continue Synthroid DVT prophylaxis �Lovenox 40 mg every 24 (2) Shortness of breath: (3) COPD (chronic obstructive pulmonary disease): (4) Hypothyroid: (5) GERD (gastroesophageal reflux disease): (6) CAD (coronary artery disease): Supervising Physician Co-Signing Physician Notes I saw the patient concurrent with the resident physician and confirmed milan portions of the history and physical exam. I agree with the impression and plan as noted in the resident documentation. Also discussed the case with pulmonary medicine prior to and after his consultation. The patient states that he is breathing easier this morning compared to overnight. He continues to complain of right ear pain. He has scattered rhonchi throughout with decreased breath sounds bilaterally, though seems to have better air exchange compared to yesterday. His right tympanic membrane shows an effusion, loss of anatomical landmarks. IMPRESSION Left upper lobe mass, neoplasm versus resolving infection Hemoptysis, resolved Emphysema, severe Nicotine addiction Right otitis media with effusion PLAN Reinstitute inhaler regimen as recommended by pulmonology Plan is to convert to p.o. Augmentin prior to discharge Follow-up arranged by pulmonology with regards to left upper lobe mass Encouraged cessation of chewing tobacco Subjective 77-year-old male with past medical history of COPD, CAD, GERD, hypothyroidism presents with weakness and shortness of breath of the past 2 weeks. He was recently hospitalized at [facility] between 09/29/2018 to 10/08/2018 for pneumonia in the setting of influenza.He describes a period of improvement upon coming home, but started to develop developed shortness of breath. He also describes associated URI symptoms including runny nose, sinus congestion, ear pain. He states that his oxygen requirement has been increased. He is on 2 L at baseline. Patient reports being fatigued this morning. He also describes right ear pain. Patient describes having episodes of regurgitation in the past. He states that sometimes he will go to bed after eating a snack and wake up with food particles in his mouth. Review of systems Patient currently denies fevers, chills, chest pain, respiratory distress, abdominal pain, nausea/vomiting/diarrhea Physical Exam Vital Signs (Past 24 Hours): Last Vital Signs Temp 36.9 C 10/27/18 15:39 Pulse 98 H 10/27/18 15:39 Resp 18 10/27/18 15:39 BP 109/69 10/27/18 15:39 Pulse Ox 91 10/27/18 15:39 Constitutional: WD/WN, vitals as above Eyes: PERRL, conjunctivae normal, anicteric sclerae ENMT: external ear and nose normal, oropharynx normal Right ear; no inflammation of the external canal, cola colored effusion behind right TM Neck: trachea midline, no thyromegaly Respiratory: no respiratory distress, no labored breathing and no nasal flaring Auscultation: lungs clear to auscultation bilaterally Cardiovascular: RRR, no murmur, no edema Gastrointestinal (Abdomen): normal bowel sounds, soft, nontender, no hepatosplenomegaly Musculoskeletal: no cyanosis or clubbing, extremities motor strength 5/5 Skin: no rashes, warm and dry Results & Data Laboratory Results Laboratory Last Values WBC 7.54 K/uL (4.8-10.8) 10/27/18 06:41 RBC 4.03 M/uL (4.7-6.1) L 10/27/18 06:41 Hgb 11.5 g/dL (14.0-18.0) L 10/27/18 06:41 Hct 36.7 % (42-52) L 10/27/18 06:41 MCV 91.1 fL (80-100) 10/27/18 06:41 MCH 28.5 pg (25-34) 10/27/18 06:41 MCHC 31.3 g/dL (32-36) L 10/27/18 06:41 RDW Std Deviation 54.1 fL (36.4-46.3) H 10/27/18 06:41 RDW Coeff of Yoselin 16.3 % (11.5-14.5) H 10/27/18 06:41 Plt Count 181 K/uL (130-400) 10/27/18 06:41 MPV 10.1 fL (7.4-10.4) 10/27/18 06:41 Immature Gran % (Auto) 0.1 % 10/27/18 06:41 Neut % (Auto) 72.2 % 10/27/18 06:41 Lymph % (Auto) 17.2 % 10/27/18 06:41 [place] % (Auto) 9.3 % 10/27/18 06:41 Eos % (Auto) 1.1 % 10/27/18 06:41 Baso % (Auto) 0.1 % 10/27/18 06:41 Immature Gran # (Auto) 0.01 K/uL (0.00-0.02) 10/27/18 06:41 Neut # (Auto) 5.44 K/uL (1.4-6.5) 10/27/18 06:41 Lymph # (Auto) 1.30 K/uL (1.2-3.4) 10/27/18 06:41 [place] # (Auto) 0.70 K/uL (0.11-0.59) H 10/27/18 06:41 Eos # (Auto) 0.08 K/uL (0-0.5) 10/27/18 06:41 Baso # (Auto) 0.01 K/uL (0-0.2) 10/27/18 06:41 PT 10.9 Seconds (9.0-12.0) 10/25/18 16:40 INR 1.1 (0.9-1.1) 10/25/18 16:40 APTT 31.2 Seconds (21.0-31.0) H 10/25/18 16:40 PTT Ratio 1.2 10/25/18 16:40 POC D-Dimer > 450 ng/mlFEU (0-450) H* 10/25/18 15:08 Sodium 140 mmol/L (136-145) 10/27/18 06:41 Potassium 3.9 mmol/L (3.5-5.1) 10/27/18 06:41 Chloride 107 mmol/L (98-107) 10/27/18 06:41 Carbon Dioxide 28 mmol/L (21-32) 10/27/18 06:41 Anion Gap 5.0 (3-11) 10/27/18 06:41 BUN 21 mg/dl (7-18) H 10/27/18 06:41 Creatinine 1.36 mg/dl (0.6-1.4) 10/27/18 06:41 Est Cr Clr Drug Dosing 46.2 ml/min 10/27/18 06:41 Est GFR ( Amer) 57.4 10/27/18 06:41 Est GFR (Non-Af Amer) 49.5 10/27/18 06:41 BUN/Creatinine Ratio 15.6 (10-20) 10/27/18 06:41 Glucose 90 mg/dl (70-99) 10/27/18 06:41 Calcium 8.0 mg/dl (8.5-10.1) L 10/27/18 06:41 Phosphorus 3.0 mg/dl (2.5-4.9) 10/25/18 21:17 Magnesium 1.8 mg/dl (1.8-2.4) 10/25/18 21:17 Total Bilirubin 0.7 mg/dl (0.2-1) 10/25/18 16:40 AST 15 U/L (15-37) 10/25/18 16:40 ALT 29 U/L (12-78) 10/25/18 16:40 Alkaline Phosphatase 74 U/L (45-117) 10/25/18 16:40 POC Troponin I < 0.03 ng/ml (0-0.045) 10/25/18 15:08 NT-Pro-B Natriuret Pep 90 pg/ml (0-1800) 10/25/18 21:17 Total Protein 7.8 gm/dl (6.4-8.2) 10/25/18 16:40 Albumin 3.2 gm/dl (3.4-5.0) L 10/25/18 16:40 Globulin 4.6 gm/dl (2.5-4.0) H 10/25/18 16:40 Albumin/Globulin Ratio 0.7 (0.9-2) L 10/25/18 16:40 Procalcitonin < 0.05 ng/ml (0-0.5) 10/25/18 15:00 Nasal Screen MRSA (PCR) Negative (Negative) 10/26/18 07:50 Influenza Type A Ag Neg for Influ A (Neg) 10/26/18 15:00 Influenza Type B Ag Neg for Influ B (Neg) 10/26/18 15:00 Resident Activity Tracking Resident Involvement: Resident Care Provided Care Provided: Adult Hospital Medicine (1) CAD (coronary artery disease) Associated angina: without angina Coronary Disease-Associated Artery/Lesion type: [place] artery [place] vs. transplanted heart: [place] heart Qualified Code(s): I25.10 - Atherosclerotic heart disease of [place] coronary artery without angina pectoris (2) Hypothyroid Hypothyroidism type: unspecified Qualified Code(s): E03.9 - Hypothyroidism, unspecified (3) COPD (chronic obstructive pulmonary disease) COPD type: emphysema Emphysema type: unspecified Qualified Code(s): J43.9 - Emphysema, unspecified (4) GERD (gastroesophageal reflux disease) Esophagitis presence: esophagitis presence not specified Qualified Code(s): K21.9 - Gastro-esophageal reflux disease without esophagitis
[2018-10-27] MEDS: AMOXICILLIN/CLAVULANATE 875 MG TAB PO SCH (17:29)
[2018-10-27] MEDS: ENOXAPARIN INJ 40 MG/0.4 ML SYR SQ SCH (20:42)
[2018-10-27] MEDS: TRAZODONE HCL 100 MG TAB PO SCH (20:42)
[2018-10-28] MEDS: ALBUT/IPRATROP 3MG/0.5MG NEB 3 ML VIAL NEB SCH ×3 (02:58→11:17)
[2018-10-28] MEDS: LEVOTHYROXINE SODIUM 50 MCG TABLET PO SCH (05:52)
[2018-10-28 07:02] LABS: Basophils # (auto) 0.01 K/uL (0-0.2); Basophils % (auto) 0.2 %; Eosinophils # (auto) 0.18 K/uL (0-0.5); Eosinophils % (auto) 3.4 %; Hematocrit (blood only) 37.4 % (42-52); Hemoglobin 11.9 g/dL (14.0-18.0); Immature Granulocytes # (auto) 0.01 K/uL (0.00-0.02); Immature Granulocytes % (auto) 0.2 %; Lymphocytes # (auto) 1.06 K/uL (1.2-3.4); Mean Corpuscular Hgb Conc 31.8 g/dL (32-36); Mean Corpuscular Volume 91.4 fL (80-100); Mean Platelet Volume 9.9 fL (7.4-10.4); Monocytes # (auto) 0.55 K/uL (0.11-0.59); Monocytes % (auto) 10.4 %; Neutrophils # (auto) 3.48 K/uL (1.4-6.5); Neutrophils % (auto) 65.8 %; Platelet Count 176 K/uL (130-400); RDW Coefficient of Variation 16.2 % (11.5-14.5); RDW Standard Deviation 54.7 fL (36.4-46.3); Red Blood Count 4.09 M/uL (4.7-6.1); White Blood Count 5.29 K/uL (4.8-10.8)
[2018-10-28 07:29] LABS: BUN Creatinine Ratio 14.1 (10-20); Calcium 8.4 mg/dl (8.5-10.1); Creatinine Clr Calc Pharmacy 50.3 ml/min; Est GFR (African American) 63.5; Est GFR (Non-African American) 54.8; Potassium 4.2 mmol/L (3.5-5.1)
[2018-10-28] MEDS: ASPIRIN 81 MG ECTAB PO SCH (07:38)
[2018-10-28] MEDS: LORATADINE 10 MG TAB PO SCH (07:38)
[2018-10-28] MEDS: PANTOprazole 40 MG TAB PO SCH (07:38)
[2018-10-28] MEDS: AMOXICILLIN/CLAVULANATE 875 MG TAB PO SCH (07:39)
[2018-10-28] MEDS: ROSUVASTATIN CALCIUM 20 MG TAB PO SCH (07:39)
[2018-10-28] MEDS: NICOTINE 21 MG/24 HR TDSY TD SCH (07:41)
[2018-10-28] MEDS ORDERED: VANCOMYCIN TROUGH ONE (11:30)
--- NOTE | 2018-10-28 12:42 | Progress Note ---
DATE: 10/28/2018 PULMONARY PROGRESS NOTE TIME: 12:10 p.m. SUBJECTIVE: The patient states he is feeling better. He is still coughing. He claims that he coughed up some gobs of phlegm. He has not coughed up any blood. He is less short of breath than he had been. His son was with him during this evaluation. OBJECTIVE: GENERAL: The patient is cooperative, alert and oriented. He was in no distress. He did not cough during my exam. VITAL SIGNS: Temperature is 36.3. He has had no fevers. Heart rate at the time of my exam was 100. Respiratory rate 20. Saturation on 3 liters 94%. LUNGS: Very diminished breath sounds were present. No active wheezes. EXTREMITIES: Showed no cyanosis, clubbing or edema. LABORATORY DATA: White count today is 5.29. Hemoglobin 11.9. Platelets 176,000. On admission, the white count was 13.82 and thus there has been improvement. Electrolytes are normal. BUN 18 with creatinine 1.25. Sputum Gram stain showed moderate polys, moderate gram-positive cocci, few gram-negative cocci. IMPRESSION: 1. Left upper lobe mass-like density - questionable neoplasm versus pneumonia. 2. Recent hemoptysis - resolved. 3. Severe emphysema. 4. Nicotine addiction. COMMENTS: The patient seems to be stable. I have no objection to discharge. RECOMMENDATIONS: 1. My office will arrange for him to have a followup appointment in 2 months and we will do a CAT scan at that time. 2. It is suggested that he go home with prescriptions for Advair 500/50, 1 puff b.i.d. and Spiriva Respimat 2 puffs daily. 3. The patient was informed that he should call me if he should have any significant hemoptysis.
--- NOTE | 2018-10-28 18:09 | Discharge Summary ---
Date of Service October 28, 2018 Admission HPI Per Admitting Provider Mr. Arias is a 77yo male with history of COPD, recurrent PNA (yearly over the past 3 years), CAD s/p NM with stent x 2 presenting with SOB. Patient was admitted to [facility] 09/29/18 - 10/08/18 with acute respiratory failure, pneumonia and influenza. He reports he was treated with antibiotics, Tamiflu and nebs. He does not recall which antibiotics were used. He was not in the MICU and not intubated. He was discharged with a steroid taper and home oxygen was initiated. He now wears 2-3 liters at home with rest and 6 liters at home with activity. He reports feeling fairly well for 3-4 days after returning home after which he became progressively weak and short of breath. Patient reports becoming dyspneic with minimal ambulation in his home, appx 20-30 feet. Prior to his PNA he was fairly independent. He denies fevers/chills/sweats/malaise. Denies chest pain/palpitations. Denies abdominal pain/nausea/vomiting. He did have some diarrhea which resolved yesterday. He has a dry cough. Patient was seen in followup on 10/13/18. At that time he was feeling better. A CT chest was ordered to followup on a possible "mass" noted on [place] [facility] ER Course: Solumedrol 125mg, DuoNeb Admission Exam Per Admitting Provider General: patient resting comfortably, NAD, AA&O x 4, chronically ill in appearance Skin: warm, dry, intact, no rashes or lesions HEENT: NC/AT, PERRL, EOMI, anicteric sclera, conjunctiva without injection, external ear normal to inspection and nontender, nares patent, moist mucus membranes, poor dentition, no oropharyngeal lesions, neck supple, trachea midline, no LAD, no thyromegaly, no JVD Heart: +S1/S2, regular, tachycardic, no m/r/g Lungs: equal air entry bilaterally, + coarse breath sounds/crackles in right base and left mid-lung field, no wheezing Abd: +BS, soft, NT/ND, no masses/organomegaly/ascites Ext: warm, 2+ pulses in UE/LE bilaterally, slight digital clubbing, no edema Neuro: nonfocal, patient AA&O x 4, speech intact, no facial droop, moving all extremities on command with equal strength 5/5 Principal Diagnosis Pneumonia Discharge Exam Constitutional WD/WN, vitals as above Eyes PERRL, conjunctivae normal, anicteric sclerae ENMT external ear and nose normal, oropharynx normal Neck trachea midline, no thyromegaly Respiratory no respiratory distress, no labored breathing and no nasal flaring Auscultation: lungs clear to auscultation bilaterally and + wheezes (Mild wheezing bilaterally with expiration) Cardiovascular RRR, no murmur, no edema Gastrointestinal (Abdomen) normal bowel sounds, soft, nontender, no hepatosplenomegaly Musculoskeletal no cyanosis or clubbing, extremities motor strength 5/5 Skin no rashes, warm and dry Discharge Data Allergies Allergy/AdvReac Type Severity Reaction Status Date / Time cephalexin Allergy Unknown ITCHING Verified 10/25/18 15:26 Iodinated Contrast- Oral and Allergy Unknown Hypotension Verified 10/25/18 15:26 IV Dye Consultations 10/25/18 17:31 ED Decision to Admit Stat 10/25/18 21:03 Consult Case Management - Discharge Planning Routine 10/26/18 14:37 Consult Pulmonology Routine Ordered Studies 10/25/18 14:48 US venous doppler LE BI Stat [place], [place] [phone] XRay Report Patient: AMILCAR ARIAS Date: 10/25/18 MR#: [id number]: [address] Acct ID:[id number]: [address] Date: 1940City Zip: [place] [address] Age: 77Location: ED Sex: M Room/Bed: Att Phy: Diagnosis: HEART FLUTTERING,GENERALIZED PAIN Teresa Phy: Roderick Mcghee D.O.Service Date: 10/25/18 Fam Phy: Interpreting Phy: Jose Henley MD Admit Phy: Ordering Phy: Tommy Banks MD cc: ~ XR chest 1V portable CLINICAL HISTORY: 77 years-old Male presenting with Dyspnea. TECHNIQUE: Portable upright AP view of the chest was obtained. COMPARISON: Chest CT from 10/21/2018. FINDINGS: Atherosclerosis of the aortic arch. Cardiac silhouette top normal in size. Extensive reticular opacities with a mid to basilar predominance increased from prior. Background heterogeneous lung markings. No large pleural effusion or pneumothorax. Osseous structures normal. Upper abdomen normal. IMPRESSION: 1. Increased bilateral mid to basilar predominant infiltrates superimposed on emphysema. This is concerning for multifocal pneumonia versus aspiration. Electronically signed by: Jose Henley M.D. 10/25/2018 3:26 PM Dictated: 10/25/18 1525 Transcribed: 10/25/18 1525 [facility], [place] [phone] Ultrasound Report Patient: AMILCAR ARIAS Date: 10/25/18 MR#: [id number]: [address] Acct ID:[id number]: [address] Date: 1940[facility] Zip: [place] [address] Age: 77Location: ED Sex: M Room/Bed: Att Phy: Diagnosis: HEART FLUTTERING,GENERALIZED PAIN Teresa Phy: Roderick Mcghee D.O.Service Date: 10/25/18 Fam Phy: Interpreting Phy: Brandon Fregoso MD Admit Phy: Ordering Phy: Tommy Banks MD cc: ~ US venous doppler LE BI CLINICAL HISTORY: Bilateral leg pain COMPARISON STUDY: No previous studies for comparison. FINDINGS: Real-time and color flow Doppler imaging were performed. Flow was seen within the femoral, popliteal and calf veins with no intraluminal thrombus demonstrated. The saphenous vein is patent. IMPRESSION: No evidence of lower extremity DVT. Electronically signed by: Brandon Fregoso M.D. 10/25/2018 4:14 PM Dictated: 10/25/18 1614 Transcribed: 10/25/18 1614 [facility], [place] [phone] CT Scan Report Patient: AMILCAR ARIAS Date: 10/21/18 MR#: [id number]: [address] Acct ID:[id number]: [address] Date: 1940[facility] Zip: [place] [address] Age: 77Location: CT Sex: M Room/Bed: Att Phy: Heidy López-CDiagnosis: LUNG MASS Teresa Phy: Roderick Mcghee D.O.Service Date: 10/21/18 Fam Phy: Interpreting Phy: Nigel Bobby MD Admit Phy: Ordering Phy: Hediy López PA-C cc: ~ CT SCAN OF THE CHEST WITHOUT IV CONTRAST CLINICAL HISTORY: Lung mass. COMPARISON STUDY: No priors. TECHNIQUE: CT scan of the thorax was performed from the thoracic inlet to the upper abdomen. Images are reviewed in the axial, sagittal, and coronal planes. IV contrast was not administered for this examination as per the referring clinician. A dose lowering technique was utilized adhering to the principles of ALARA. CT DOSE: 388.63 mGy.cm FINDINGS: Thyroid: Imaged portions of the thyroid gland are normal in size and attenuation. Thoracic aorta: There is advanced atherosclerotic calcification of the thoracic aorta, which is normal in caliber and demonstrates 4-vessel variant arch anatomy. Heart: The heart is enlarged and without pericardial effusion. The coronary arteries are densely calcified. The main pulmonary arteries are dilated suggesting pulmonary artery hypertension. Lungs and pleural spaces: Advanced emphysema is identified. There is a 6 x 5 x 3 cm masslike opacity in the left upper lobe seen on image #144. A 12 mm nodule is seen in the left lower lobe on image #196. An adjacent 9 mm left upper lobe nodule is seen on image #113. There is a 5 mm pleural-based nodule in the left lower lobe seen image #237. No pleural effusion is identified. There is segmental atelectasis in the right middle lobe. Atelectasis is also seen at both lung bases and in the lingula. Mediastinum: There is no mediastinal lymphadenopathy. Ariana: Not well assessed without IV contrast. Axillae: There is no axillary lymphadenopathy. Upper abdomen: There is a large hiatal hernia. The esophagus is distended with fluid to the level of the thoracic inlet. Large cysts are partially imaged in the upper poles of both kidneys. A cyst on the right measures at least 13 cm. No adrenal lesion is identified. Skeletal structures: The skeletal structures are osteopenic. There is a mild to moderate compression deformity of T12. No lytic or blastic bony lesions are seen. IMPRESSION: 1. Cardiomegaly and advanced emphysema. 2. There is an approximately 6 x 5 x 3 cm masslike opacity in the left upper lobe. Although this could potentially be on an inflammatory basis, the appearance is highly concerning for neoplasm. A 1 month follow-up is recommend for reassessment. If this has been present on prior examinations then neoplasm becomes the diagnosis of exclusion. 3. There are additional pathologically indeterminant pulmonary nodules in the left upper and left lower lobes. Metastatic foci are not excluded. 4. No pleural effusion is identified. 5. No mediastinal adenopathy is identified. 6. Large hiatal hernia with fluid filling the esophagus to the level of the thoracic inlet. Note that this may place the patient at risk for aspiration. 7. Segmental atelectasis is present in the right middle lobe. This should be also be reassessed on follow-up examinations. 8. Additional findings as above. Electronically signed by: Nigel Bobby M.D. 10/21/2018 2:58 PM Dictated: 10/21/18 1437 Transcribed: 10/21/18 1437 Hospital Course (1) Multifocal pneumonia: 77-year-old male with past medical history of COPD, CAD, GERD, hypothyroidism presents with weakness and shortness of breath of the past 2 weeks. He was recently hospitalized at [facility] between 09/29/2018 to 10/08/2018 for pneumonia in the setting of influenza. Multifocal pneumonia, following recent hospitalization for influenza -The patient was admitted for respiratory distress and subsequently treated for pneumonia. Patient received broad-spectrum antibiotics for 48 hours and was transitioned to Augmentin to cover for community acquired/anaerobic species. COPD -At the time of discharge the patient's oxygen requirement was around baseline 2-3 L. Patient was educated regarding compliance with inhalers. It appears that the patient stopped using his inhalers because he cannot afford the medications, but he states now he will find a way to get them. �Was seen by pulmonology, Dr. See, plan is to follow-up in the outpatient, will use Spiriva Respimat and Advair Left upper lobe masslike opacity on CT, 10/21/2018 �We will be following up with Dr. See regarding this, repeat CT in 2 months Tobacco abuse �Discussed cessation �Prescribed nicotine replacement at the time of discharge CAD �Status post stent placement x2 in 2011 �Continue aspirin, Plavix, Crestor GERD �Continue Protonix Hypothyroidism �Continue Synthroid DVT prophylaxis �Lovenox 40 mg every 24 (2) Shortness of breath: (3) COPD (chronic obstructive pulmonary disease): (4) Hypothyroid: (5) GERD (gastroesophageal reflux disease): (6) CAD (coronary artery disease): Total Time Total Time Spent Total Time Spent (In Minutes): Greater than 30 minutes Total Time Includes: Examination of the Patient, Discharge Planning, Medication Reconciliation and Communication With Other Providers Discharge Plan Discharge Items Patient Disposition: Home - Home Health Services Reason For Visit: PNEUMONIA Discharge Diagnosis: Pnuemonia/COPD Condition: Good Discharge Goals: Improve disease control and Prevent disease Activity: Resume your previous activity Non-emergency contact: Primary Care Provider and Auto Claim Representative Call non-emergency contact if: you have any medication questions Follow-up/Referrals: María Michelle CRNP [Nurse Practitioner] - 11/14/18 8:30 am (An appointment was made on your behalf with María NEWTON at [facility] Pulmon[facility]. Please call the clinic with any questions or concerns. Thank you!) Roderick Mcghee [Primary Care Provider] - 11/04/18 11:15 am Diet: Heart Healthy Addtl Provider Instructions: You are treated for COPD and pneumonia. As we discussed, because you have not been taking your inhalers, your COPD has worsened. We are discharging from the hospital with a prescription for Augmentin 875 mg twice daily for 10 more days, an antibiotic to finish treatment of your pneumonia. We are also prescribing the following inhalers recommended by the glass sander Dr. See: Advair 500/50 twice daily, Spiriva Respimat 2 inhalations daily. We are planning appointments for you to follow-up with Dr. See. He would like you to also get a repeat CT scan of the chest to evaluate to see if the findings have resolved. As we discussed, the findings on CT could be secondary to your recent bouts of pneumonia, but we would still like to see how it looks in 2 months to be sure. We would as like you to follow up with your primary care doctor and continue working on quitting tobacco. Call [address] [place] [address] for information regarding free resources for quiting such as nicotine replacement. Prescriptions: New Spiriva Respimat 2.5 mcg/actuation mist 2 inha INH DAILY 30 Days Qty: 4 RF: 6 fluticasone-salmeterol [Advair Diskus] 500-50 mcg/dose blister with device 1 inha INH BID 30 Days Qty: 14 RF: 6 amoxicillin-pot clavulanate [Augmentin] 875-125 mg tablet 1 tab PO BID 10 Days Qty: 20 RF: 0 nicotine 21 mg/24 hr patch 24 hour 1 patch TD DAILY Qty: 28 RF: 6 Continued albuterol sulfate 2.5 mg /3 mL (0.083 %) solution for nebulization 3 ml Inhalation Q6H PRN (Reason: Shortness Of Breath Or Wheezing) RF: 0 clopidogrel 75 mg tablet 75 mg PO Q2D RF: 0 aspirin 81 mg Tablet,Delayed Release (Dr/Ec) 81 mg PO DAILY RF: 0 levothyroxine 50 mcg tablet 50 mcg PO QAM RF: 0 pantoprazole 40 mg tablet,delayed release (DR/EC) 40 mg PO QAM RF: 0 trazodone 150 mg tablet 300 mg PO HS RF: 0 rosuvastatin 20 mg tablet 20 mg PO DAILY RF: 0 docusate sodium [Stool Softener] 100 mg Capsule 100 mg PO BID PRN (Reason: Constipation) RF: 0 Stand-Alone Forms: [facility] Discharge Orders: Discharge Order (Routine); Ordered 10/28/18 Ordered By: Mert Soriano Admission Data Admit Date/Time: 10/25/18 18:53 Attending Provider: Ivan Alaniz Admit Provider: Alexia Perez Primary Care Provider: Roderick Mcghee Other Providers: Alexia Perez ; Po See Service: Medical Other Interventions: Discharge Summary Assessment (RN) Last Done: 10/28/18 13:58 Pending Studies at Discharge: No DC Date/Time DO NOT enter until pt leaves facility: 10/28/18 16:25 Supervising Physician Co-Signing Physician Notes Patient seen and examined with Dr. Soriano. Agree with history, physical exam findings, hospital course, assessment and plan as documented. In brief, Mr. Arias is a 77 year old male with hx of COPD and CAD admitted with multifocal pneumonia. He has clinically improved and is back to his home dose of supplemental O2. He was transitioned from zosyn to Augmentin, which he will complete as an outpatient. For his COPD, we will start him of Advair 500/50 and spiriva respimat. He plans to follow up with pulmonology as an outpatient. He was found to have an opacity in the LUP here--unsure if this is resolving infectious focus vs malignancy. Will require CT chest in 2 months. He is now interested in nicotine cessation (quit smoking in the past and now uses chew). Nicotine patch rx provided at discharge. Other chronic conditions were stable and home medications were continued. 35 minutes spent discharge planning. Resident Activity Tracking Resident Involvement: Resident Care Provided Care Provided: Adult [facility]
== END 2018-10-28 16:25 | disposition home health service (06) | DRG 195 ==
LOC: ED 14:10 → 4E 18:53 → SUATTDRO 18:53 → 4E 19:58